=== PATIENT | female | born 1980 | race Caucasian/White ===

== ENCOUNTER 2021-02-23 09:51 | Outpatient (REF) | payer MEDICARE, MEDICAID, SELFPAY | END 2021-02-23 09:52 | disposition home or self-care (01) | LOC: HO.LAB 09:51 | PROVIDERS: PCP Internal Medicine; Visit Provider Family Medicine Adult Medicine | DX: M24.9 Joint derangement, unspecified (principal) | CPT/HCPCS: 99202 ==

== ENCOUNTER → 2021-03-09 10:00 | Outpatient (BNVA) | payer MEDICARE, MEDICAID, SELFPAY | PROVIDERS: PCP Internal Medicine; Visit Provider Family Medicine Adult Medicine | DX: M24.9 Joint derangement, unspecified (principal) | CPT/HCPCS: 99212 ==

== ENCOUNTER 2023-06-05 13:14 | Outpatient (AMB) | payer MEDICARE, MEDICAID, SELFPAY ==
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
[2023-06-05 13:20] VITALS: BP 118/64; PULSE 94; RESP 14; BMI 28.8
== END 2023-06-05 14:00 | disposition home or self-care (01) ==
PROVIDERS: PCP Internal Medicine; Visit Provider Internal Medicine
DX: M25.512 Pain in left shoulder (principal); G89.29 Other chronic pain; M54.9 Dorsalgia, unspecified; S42.009A Fracture of unspecified part of unspecified clavicle, initial encounter for closed fracture
CPT/HCPCS: 99214

== ENCOUNTER → 2023-06-05 13:14 | Outpatient (BNVA) | payer MEDICARE, MEDICAID, SELFPAY | PROVIDERS: PCP Internal Medicine; Visit Provider Internal Medicine | DX: M54.9 Dorsalgia, unspecified (principal); S42.002D Fracture of unspecified part of left clavicle, subsequent encounter for fracture with routine healing; G89.29 Other chronic pain | CPT/HCPCS: 99212 ==